=== PATIENT | male | born 1975 | race African-American/Black ===

== ENCOUNTER 2016-04-15 15:11 | Emergency (ER) | payer SELFPAY ==
[2016-04-15 15:18] VITALS: O2SAT 95
--- NOTE | 2016-04-15 15:54 | EDPHY ---
H & P Time Seen by Provider: 04/15/16 15:53 HPI/ROS: CHIEF COMPLAINT: Pulsating veins left hand HISTORY OF PRESENT ILLNESS: 41-year-old male with a history of anxiety and depression presents with pulsating veins in his left hand. Last night he was using methamphetamine and after using the meth, he became concerned that he was having a heart attack or stroke. He was asymptomatic at that time except for anxiety. He has been unable to shake this feeling. This morning he noticed pulsating in the veins of his left hand. No associated pain, numbness or weakness. He is now asymptomatic. REVIEW OF SYSTEMS: A complete 10-point review of systems was performed and is negative except for those items mentioned in the HPI. Past Medical/Surgical History: Hypertension, early diabetes. Social History: Homeless Smoking Status: Never smoked Physical Exam: General Appearance: Alert, quite anxious Eyes: Pupils equal and round, no conjunctival pallor ENT, Mouth: Mucous membranes moist Neck: Normal inspection Respiratory: Lungs are clear to auscultation Cardiovascular: Regular rate and rhythm Gastrointestinal: Abdomen is soft and non-tender Neurological: A&O, nonfocal exam Skin: Warm and dry Extremities: Left hand-normal inspection, no swelling or tenderness, radial pulse 2 + Psychiatric: Anxious Constitutional: Initial Vital Signs Temperature (C) 36.9 C 04/15/16 15:15 Heart Rate 112 H 04/15/16 15:15 Respiratory Rate 22 H 04/15/16 15:15 Blood Pressure 116/64 04/15/16 15:15 O2 Sat (%) 95 04/15/16 15:15 O2 Delivery Mode Room Air Allergies/Adverse Reactions: No Known Allergies Allergy (Unverified 04/15/16 15:13) Home Medications: Medication Instructions Recorded ALPRAZolam 04/15/16 GABAPENTIN 04/15/16 GLIPIZIDE 04/15/16 Losartan Potassium 04/15/16 Prevacid 04/15/16 Medical Decision Making - Diagnostics EKG Interpretation: EKG interpreted by me reveals sinus tachycardia, rate 115, no ST or segment changes. ED Course/Re-evaluation: This patient presents with significant anxiety after using methamphetamine. There is no evidence CVA, acute coronary syndrome or an acute vascular problem related to his hand. He is safe and stable for discharge. He was encouraged not to use drugs. Departure - Departure Disposition: Home, Routine, Self-Care Clinical Impression: Anxiety, Methamphetamine abuse Condition: Good Instructions: Anxiety (ED), Methamphetamine Abuse (ED) Additional Instructions: You do not have a stroke or heart attack. Your left hand is normal. Referrals: [facility] [Outside] - As per Instructions Report Scribed for: Merlyn Perez Report Scribed by: Floyd Nolasco Date of Report: 04/15/16 Time of Report: 15:54 Physician Review and Approval Statement: 04/15/16 15:54 Portions of this note were transcribed by a medical photographer. I personally performed a history, physical exam, medical decision making, and confirmed accuracy of information the transcribed note.
--- NOTE | 2016-04-15 16:11 | CPEKG ---
Heart Rate: 115 RR Interval: 522 P-R Interval: 148 QRSD Interval: 80 QT Interval: 320 QTC Interval: 443 P Olar: 37 QRS Olar: 7 T Wave Olar: 69 EKG Severity - OTHERWISE NORMAL ECG - EKG Impression: SINUS TACHYCARDIA Electronically Signed By: Merlyn Perez 15-Apr-2016 21:24:56
[2016-04-15 16:17] VITALS: BP 118/68; PULSE 110; RESP 20; TEMP 98.2
== END 2016-04-15 16:19 | disposition home or self-care (01) ==
DX: F41.9 Anxiety disorder, unspecified (principal); F15.10 Other stimulant abuse, uncomplicated; I10 Essential (primary) hypertension; E11.9 Type 2 diabetes mellitus without complications